=== PATIENT | female | born 1950 | race Caucasian/White ===

== ENCOUNTER 2017-09-29 10:08 | Outpatient (CLI) | payer BC ==
--- NOTE | 2017-09-29 12:25 | MMO ---
BILATERAL MAMMOGRAMS: DATE: 09/29/17 HISTORY: Screening mammography. COMPARISON: 06/24/10, 09/15/11, 03/05/13, 08/27/14, 08/31/16, and 09/19/16. FINDINGS: Scattered fibroglandular densities and benign-appearing calcifications are again demonstrated. Calci fied breast implants are in place. On today's exam, a partially obscured focal asymmetric density deep within the inferior medial aspec t of the right breast has become much more pronounced. No other new dominant mass or suspicious calc ifications are evident. The study was evaluated with the assistance of computer-aided detection. IMPRESSION: New focal asymmetric density at the inferomedial aspect of the right breast warrants further evaluat ion. BIRADS 4: Suspicious Abnormality - Biopsy Should Be Considered Patient will be recalled for spot compression additional views of the right breast. Sonogram should also be scheduled in case it is needed. POS: HOME
== END 2017-09-29 10:09 | disposition home or self-care (01) ==
LOC: MAMMO 10:08
PROVIDERS: ATTEND Obstetrics & Gynecology
DX: Z12.31 Encounter for screening mammogram for malignant neoplasm of breast (principal)
CPT/HCPCS: 77067; G0202

== ENCOUNTER 2018-10-24 08:33 | Outpatient (CLI) | payer MEDICARE, BC | END 2018-10-24 08:34 | disposition home or self-care (01) | LOC: BICMAMMO 08:33 | PROVIDERS: ATTEND Specialist | DX: R92.8 Other abnormal and inconclusive findings on diagnostic imaging of breast (principal); R92.1 Mammographic calcification found on diagnostic imaging of breast; R92.2 Inconclusive mammogram; Z80.3 Family history of malignant neoplasm of breast; Z98.890 Other specified postprocedural states | CPT/HCPCS: 77066; G0279 ==

== ENCOUNTER 2019-11-12 08:14 | Outpatient (CLI) | payer MEDICARE, OTHER ==
--- NOTE | 2019-11-12 09:14 | MMO ---
Bilateral MAMMO Bilat Screen [facility]. CLINICAL HISTORY: Patient is 69 years old and is seen for screening. The patient has the following family history of breast cancer: paternal aunt, 40's. The patient has no personal history of cancer. The patient has a history of bilateral Implants in 1979. VIEWS: The views performed were: bilateral craniocaudal with tomosynthesis and bilateral mediolateral oblique with tomosynthesis. FILMS COMPARED: The present examination has been compared to a prior imaging study performed at [facility] on 10/24/2018. This study has been interpreted with the assistance of computer-aided detection. MAMMOGRAM FINDINGS: The breasts are heterogeneously dense, which could obscure a lesion on mammography. There are benign appearing calcifications seen in both breasts. There are benign scattered densities in both breasts. There are no suspicious masses, suspicious calcifications, or new areas of architectural distortion. IMPRESSION: THERE IS NO MAMMOGRAPHIC EVIDENCE OF MALIGNANCY. A ROUTINE FOLLOW-UP MAMMOGRAM IN 1 YEAR IS RECOMMENDED. THE RESULTS OF THIS EXAM WERE SENT TO THE PATIENT. ACR BI-RADS Category 2 - Benign finding MAMMOGRAPHY NOTE: 1. A negative mammogram report should not delay a biopsy if a dominant of clinically suspicious mass is present. 2. Approximately 10% to 15% of breast cancers are not detected by mammography. 3. Adenosis and dense breasts may obscure an underlying neoplasm. Reported by: MANDY PATEL MD Electonically Signed: [id number]
== END 2019-11-12 08:15 | disposition home or self-care (01) ==
LOC: BICMAMMO 08:14
PROVIDERS: ATTEND Obstetrics & Gynecology
DX: Z12.31 Encounter for screening mammogram for malignant neoplasm of breast (principal); Z80.3 Family history of malignant neoplasm of breast
CPT/HCPCS: 77063; 77067

== ENCOUNTER 2019-11-29 10:02 | Outpatient (CLI) | payer MEDICARE, OTHER ==
--- NOTE | 2019-11-29 11:33 | CT ---
EXAM: CT abdomen and pelvis with IV contrast PROVIDED CLINICAL HISTORY: Right upper quadrant pain COMPARISON: CT abdomen 12/27/2011. FINDINGS: The visualized lung bases are free of significant opacity. Stable focus of increased density associat ed with the posterior wall left ventricular myocardium. The solid abdominal organs demonstrate an unremarkable CT appearance. There is no bowel dilatation, inflammatory fat stranding, free fluid or free air apparent. There is n o evidence for appendicitis. Status post cholecystectomy. No regional lymph node enlargement apparent. Vascular calcifications are seen involving the abdominal aorta and its branches. Potentially moderate calcified celiac origin stenosis. The osseous structures demonstrate no concerning lytic or blastic lesions. IMPRESSION: 1. No evidence for an acute process. 2. Atherosclerosis.
== END 2019-11-29 10:03 | disposition home or self-care (01) ==
LOC: BICCT 10:02
PROVIDERS: ATTEND Internal Medicine Gastroenterology
DX: R10.11 Right upper quadrant pain (principal); I70.90 Unspecified atherosclerosis
CPT/HCPCS: 74177

== ENCOUNTER 2020-11-16 13:23 | Outpatient (CLI) | payer MEDICARE, OTHER ==
--- NOTE | 2020-11-16 14:54 | MMO ---
Bilateral MAMMO Bilat Screen [facility]. CLINICAL HISTORY: Patient is 70 years old and is seen for screening. The patient has the following family history of breast cancer: paternal aunt, 40's. The patient has no personal history of cancer. The patient has a history of bilateral Implants in 1979 and right needle biopsy - benign. VIEWS: The views performed were: bilateral craniocaudal with tomosynthesis and bilateral mediolateral oblique with tomosynthesis. FILMS COMPARED: The present examination has been compared to prior imaging studies performed at [facility] on 09/19/2016, 09/29/2017, 10/24/2018 and 11/12/2019. This study has been interpreted with the assistance of computer-aided detection. MAMMOGRAM FINDINGS: The breasts are heterogeneously dense, which could obscure a lesion on mammography. There are no suspicious masses, suspicious calcifications, or new areas of architectural distortion. IMPRESSION: THERE IS NO MAMMOGRAPHIC EVIDENCE OF MALIGNANCY. A ROUTINE FOLLOW-UP MAMMOGRAM IN 1 YEAR IS RECOMMENDED. THE RESULTS OF THIS EXAM WERE SENT TO THE PATIENT. ACR BI-RADS Category 1 - Negative MAMMOGRAPHY NOTE: 1. A negative mammogram report should not delay a biopsy if a dominant of clinically suspicious mass is present. 2. Approximately 10% to 15% of breast cancers are not detected by mammography. 3. Adenosis and dense breasts may obscure an underlying neoplasm. Reported by: VENECIA GALINDO MD Electonically Signed: [id number]
== END 2020-11-16 13:24 | disposition home or self-care (01) ==
LOC: BICMAMMO 13:23
PROVIDERS: ATTEND Obstetrics & Gynecology
DX: Z12.31 Encounter for screening mammogram for malignant neoplasm of breast (principal); Z80.3 Family history of malignant neoplasm of breast; Z98.82 Breast implant status; Z91.89 Other specified personal risk factors, not elsewhere classified
CPT/HCPCS: 77063; 77067

== ENCOUNTER 2021-11-22 09:05 | Outpatient (CLI) | payer MEDICARE, OTHER | END 2021-11-22 09:06 | disposition home or self-care (01) | LOC: BICMAMMO 09:05 | PROVIDERS: ATTEND Obstetrics & Gynecology | DX: Z12.31 Encounter for screening mammogram for malignant neoplasm of breast (principal); Z80.3 Family history of malignant neoplasm of breast; Z98.82 Breast implant status; Z91.89 Other specified personal risk factors, not elsewhere classified | CPT/HCPCS: 77063; 77067 ==

== ENCOUNTER 2022-12-02 11:15 | Outpatient (CLI) | payer MEDICARE, OTHER | END 2022-12-02 11:16 | disposition home or self-care (01) | LOC: BICMAMMO 11:15 | PROVIDERS: ATTEND Obstetrics & Gynecology | DX: Z12.31 Encounter for screening mammogram for malignant neoplasm of breast (principal); Z91.89 Other specified personal risk factors, not elsewhere classified; Z98.82 Breast implant status; Z80.3 Family history of malignant neoplasm of breast | CPT/HCPCS: 77063; 77067 ==

== ENCOUNTER 2022-12-23 09:43 | Outpatient (CLI) | payer MEDICARE, OTHER | END 2022-12-23 09:44 | disposition home or self-care (01) | LOC: BICMAMMO 09:43 | PROVIDERS: ATTEND Otolaryngology Plastic Surgery within the Head & Neck | DX: Z13.820 Encounter for screening for osteoporosis (principal); J38.00 Paralysis of vocal cords and larynx, unspecified; J38.2 Nodules of vocal cords; J34.89 Other specified disorders of nose and nasal sinuses; Z78.0 Asymptomatic menopausal state | CPT/HCPCS: 70491; 77080; 82565 ==

== ENCOUNTER 2023-01-30 19:47 | Inpatient (IN) | payer MEDICARE, OTHER ==
[2023-01-30 22:21] VITALS: BMI 26.4
[2023-01-30] MEDS ORDERED: Ondansetron ODT 4 MG TAB SL PRN (22:30)
[2023-01-30] MEDS ORDERED: Ondansetron PF 4 MG/2 ML Vial IVP PRN (22:30)
[2023-01-30] MEDS ORDERED: Acetaminophen 325 MG TAB PO PRN (22:30)
[2023-01-31] MEDS ORDERED: Amitriptyline HCl 25 MG TAB PO SCH ×2 (00:15→21:00)
[2023-01-31] MEDS ORDERED: Rosuvastatin 10 MG TAB PO SCH ×2 (00:15→21:00)
[2023-01-31 01:43] LABS: Phosphorus 5.1 mg/dL (2.3-4.7)
[2023-01-31 01:45] LABS: Magnesium 2.1 mg/dL (1.6-2.6)
[2023-01-31 05:10] LABS: #Basophils 0.1 thou/uL (0.0-0.2); #Eosinphils 0.2 thou/uL (0.0-0.7); #Lymphocytes 2.2 thou/uL (1.20-3.40); #Monocytes 0.7 thou/uL (0.11-0.59); #Neutrophils 3.8 thou/uL (1.40-6.50); %Basophils 1.1 % (0.0-1.0); %Eosinophils 2.9 % (0.0-10.0); %Lymphocytes 31.1 % (21.0-51.0); %Neutrophils 54.9 % (42.0-75.0); Hemoglobin 13.7 g/dL (12.0-16.0); Mean Corpuscular HGB CONC 32.6 g/dL (32.0-36.0); Mean Corpuscular Hemoglobin 29.4 pg (27.0-31.0); Mean Platelet Volume 8.3 fL (7.4-10.4); Platelet Count 244 10x3/uL (130-400); Red Blood Cell (RBC) Count 4.67 mill/uL (4.20-5.40)
[2023-01-31] MEDS: Levothyroxine Sodium 50 MCG TAB PO SCH (05:23)
[2023-01-31 05:40] LABS: Anion Gap 14 mmol/L (10-20); BUN (Urea Nitrogen) 19 mg/dL (9.8-20.1); Calc. Creatinine Clearance 81 mL/min (70-130); Calcium 9.4 mg/dL (7.8-10.44); Carbon Dioxide 25 mmol/L (23-31); Chloride 103 mmol/L (98-107); Estimated GFR 86; Glucose 95 mg/dL (83-110); Potassium 4.5 mmol/L (3.5-5.1); Sodium 137 mmol/L (136-145)
[2023-01-31] MEDS ORDERED: Acetaminophen 325 MG TAB PO PRN (06:34)
[2023-01-31] MEDS ORDERED: Acetaminophen 325 MG TAB PO SCH (06:45)
[2023-01-31] MEDS: Apixaban 5 MG TAB PO SCH ×2 (08:04→20:46)
[2023-01-31] MEDS: Cholecalciferol 1,000 UNITS (25 MCG) TAB PO SCH (08:04)
[2023-01-31] MEDS: Betamethasone 0.1% Cream 15 GM TUBE TOP SCH ×3 (08:04→20:47)
[2023-01-31] MEDS: Losartan 25 MG TAB PO SCH (08:05)
[2023-01-31] MEDS: Atenolol 50 MG TAB PO SCH (08:05)
[2023-01-31] MEDS: Estradiol 1 MG TAB PO SCH (08:05)
[2023-01-31] MEDS ORDERED: Flecainide 50 MG TAB PO SCH (16:30)
[2023-01-31] MEDS ORDERED: Magnesium Oxide 250 MG TAB PO SCH (21:00)
[2023-01-31] MEDS ORDERED: Latanoprost 0.005% Ophth Soln 2.5 ml Bottle EA EYE SCH (21:00)
[2023-02-01] MEDS: Levothyroxine Sodium 50 MCG TAB PO SCH (05:22)
[2023-02-01] MEDS ORDERED: Flecainide 50 MG TAB PO SCH (06:00)
[2023-02-01] MEDS: Estradiol 1 MG TAB PO SCH (10:20)
[2023-02-01] MEDS: Losartan 25 MG TAB PO SCH (10:20)
[2023-02-01] MEDS: Apixaban 5 MG TAB PO SCH (10:21)
[2023-02-01] MEDS: Atenolol 50 MG TAB PO SCH (10:21)
[2023-02-01] MEDS: Cholecalciferol 1,000 UNITS (25 MCG) TAB PO SCH (10:21)
[2023-02-01] MEDS: Betamethasone 0.1% Cream 15 GM TUBE TOP SCH (10:23)
[2023-02-01 12:22] VITALS: BP 117/57; TEMP 97.7
== END 2023-02-01 13:59 | disposition home or self-care (01) | DRG 310 ==
LOC: 2NO 22:14 → INTOOBSV 22:14 → OBSVTOIN 02-01 10:10
PROVIDERS: ADMIT Student in an Organized Health Care Education/Training Program; ATTEND Student in an Organized Health Care Education/Training Program
DX: I48.0 Paroxysmal atrial fibrillation (principal); G43.909 Migraine, unspecified, not intractable, without status migrainosus; E03.9 Hypothyroidism, unspecified; E78.5 Hyperlipidemia, unspecified; I10 Essential (primary) hypertension; J38.00 Paralysis of vocal cords and larynx, unspecified; K21.9 Gastro-esophageal reflux disease without esophagitis; Z20.822 Contact with and (suspected) exposure to COVID-19; I08.1 Rheumatic disorders of both mitral and tricuspid valves; M06.9 Rheumatoid arthritis, unspecified; Z88.0 Allergy status to penicillin; Z88.2 Allergy status to sulfonamides; Z88.8 Allergy status to other drugs, medicaments and biological substances; Z91.040 Latex allergy status; Z79.01 Long term (current) use of anticoagulants; Z79.899 Other long term (current) drug therapy; Z90.710 Acquired absence of both cervix and uterus; Z90.49 Acquired absence of other specified parts of digestive tract; Z98.890 Other specified postprocedural states
CPT/HCPCS: 36415; 80048; 83735; 83880; 84100; 84443; 85025; 93005; 93010; 93306; G0378; U0003; U0005

== ENCOUNTER 2023-07-07 12:39 | Outpatient (CLI) | payer MEDICARE, OTHER ==
[2023-07-07] MEDS ORDERED: Iopamidol 370 76% 100 ML VIAL ONE (14:16)
== END 2023-07-07 12:40 | disposition home or self-care (01) ==
LOC: CT 12:39
PROVIDERS: ATTEND Registered Nurse
DX: J38.01 Paralysis of vocal cords and larynx, unilateral (principal)
CPT/HCPCS: 71260; 82565; Q9967

== ENCOUNTER 2024-01-19 12:12 | Outpatient (CLI) | payer MEDICARE, OTHER | END 2024-01-19 12:13 | disposition home or self-care (01) | LOC: BICMAMMO 12:12 | PROVIDERS: ATTEND Obstetrics & Gynecology | DX: Z12.31 Encounter for screening mammogram for malignant neoplasm of breast (principal); Z98.82 Breast implant status; Z91.89 Other specified personal risk factors, not elsewhere classified; Z80.3 Family history of malignant neoplasm of breast | CPT/HCPCS: 77063; 77067 ==

== ENCOUNTER 2024-10-15 11:04 | Outpatient (CLI) | payer MEDICARE, OTHER | END 2024-10-15 11:05 | disposition home or self-care (01) | LOC: RAD 11:04 | PROVIDERS: ATTEND Physician Assistant | DX: R13.14 Dysphagia, pharyngoesophageal phase (principal); J38.01 Paralysis of vocal cords and larynx, unilateral | CPT/HCPCS: 74230 ==